=== PATIENT | male | born 1990 | race Caucasian/White ===

== ENCOUNTER 2020-12-15 02:09 | Emergency (ER) | payer SELFPAY ==
--- NOTE | ~2020-12-15 | XR_ITS ---
XR chest 1V portable DATE: 12/15/2020 02:55 INDICATION: Left chest pain TECHNIQUE: Portable AP chest on 12/15/2020 at 0250 hours COMPARISON: None FINDINGS: No pulmonary infiltrate or consolidation, pleural effusion or pulmonary vascular congestion or pneumothorax. Heart size is normal. IMPRESSION: No active cardiopulmonary disease Reviewed, dictated and finalized at location [facility].
--- NOTE | ~2020-12-15 | XR_ITS ---
XR abdomen/kub 1V DATE: 12/15/2020 02:56 INDICATION: Right abdominal pain TECHNIQUE: Portable supine AP view COMPARISON: None FINDINGS: There is a prominent of fecal material in the rectum and colon but no bowel obstruction is evident. The psoas shadows appear intact. Cannot exclude hepatomegaly; otherwise no apparent viscerom egaly. There is abnormal calcification of the abdomen or pelvis. IMPRESSION: Prominent of fecal material throughout the rectum and colon; no apparent bowel obstructio n Cannot exclude hepatomegaly Reviewed, dictated and finalized at [facility]. Reviewed, dictated and finalized at location [facility]. IMPRESSION: Prominent of fecal material throughout the rectum and colon; no mira arent bowel obstruction Cannot exclude hepatomegaly
[2020-12-15 02:10] VITALS: BP 132/97; PULSE 104; RESP 17; TEMP 37.2; O2SAT 100
[2020-12-15 02:18] VITALS: RESP 15
[2020-12-15] MEDS: ONDANSETRON INJ 4 MG/2 ML VIAL IV PUSH (02:25)
--- NOTE | 2020-12-15 02:27 | ECG_ITS ---
Measurements Intervals [place] Rate: 97 P: 62 [place]: 134 QRS: 58 QRSD: 81 T: 49 QT: 341 QTc: 434 Interpretive Statements SINUS RHYTHM BASELINE WANDER- V6 NORMAL ECG Electronically Signed On 12-15-2020 5:52:50 CDT by Leobardo Weathers D.O.
--- NOTE | 2020-12-15 02:29 | PC.NURSE ---
[facility] is on their way to sit with patient.
--- NOTE | 2020-12-15 02:29 | PC.NURSE ---
contacted Gogo almanza. sister [phone]
[2020-12-15 02:43] LABS: Glucose Point of Care 114 mg/dl (65-105)
[2020-12-15 02:55] LABS: Basophils Percent Auto 0.4 % (0.2-1.2); Eosinophils Absolute Auto 0.1 K/mm3 (0-0.3); Hematocrit 41.4 % (42.0-52.0); Hemoglobin 13.7 g/dL (14.0-18.0); Immature Granulocyte Absolute 0.05 K/mm3 (0.00-0.031); Immature Granulocyte Percent A 0.5 % (0-0.5); Lymphocytes Absolute Auto 2.07 K/mm3 (0.9-3.2); Mean Corpuscular HGB Conc 33.1 g/dl (32-36); Mean Corpuscular Hemoglobin 30.2 pg (26-34); Mean Corpuscular Volume 91.4 fl (80-100); Mean Platelet Volume 8.9 fl (7.4-10.4); Monocytes Percent Auto 9.7 % (2.6-8.5); Neutrophils Absolute Auto 6.6 K/mm3 (1.3-6.7); Neutrophils Percent Auto 67.4 % (45.5-73.1); Platelet Count Result 337 k/mm3 (150-375); Red Blood Count 4.53 M/mm3 (4.6-6.20); Red Cell Distribution Width 12.7 % (11.5-14.5); White Blood Count 9.9 K/mm3 (4.5-10.0)
[2020-12-15 03:04] LABS: Prothrombin Time 13.3 Seconds (11.1-14.7)
[2020-12-15 03:05] LABS: Partial Thromboplastin Time 30.5 SECONDS (22.3-36.8)
[2020-12-15 03:06] LABS: Alanine Aminotransferase 108 U/L (4-50); Albumin Level 4.3 g/dL (3.5-5.1); Alkaline Phosphatase 165 U/L (38-126); Anion Gap 7 mmol/L (8-16); Aspartate Amino Transferase 63 U/L (17-59); Bilirubin,Total 0.6 mg/dL (0.2-1.3); Blood Urea Nitrogen 14 mg/dL (9-20); Calcium 9.5 mg/dL (8.4-10.2); Carbon Dioxide 27 mmol/L (22-30); Chloride 105 mmol/L (98-107); Estimated Glomerular Filt Rate > 60; Ethanol < 10 mg/dL (<10); Glucose 109 mg/dL (65-110); Potassium 3.9 mmol/L (3.4-5.0); Sodium 139 mmol/L (137-145)
[2020-12-15 03:07] LABS: Lipase 45 U/L (23-300); Magnesium 1.9 mg/dL (1.6-2.3)
[2020-12-15 03:18] LABS: Troponin I < 0.012 ng/mL (0.000-0.034)
[2020-12-15 03:25] VITALS: BP 125/86; PULSE 100; RESP 14; O2SAT 96
--- NOTE | 2020-12-15 03:32 | ED.OVERDOSE ---
HPI - Overdose General Chief Complaint: Overdose Stated Complaint: chest and abd pain Time Seen by Provider: 12/15/20 02:13 Source: patient, EMS and RN notes reviewed Mode of arrival: EMS Limitations: no limitations History of Present Illness HPI Narrative: This is a 30 year old male with history of substance abuse who presents with EMS for evaluation an overdose. Patient states he swallowed bag containing 6.5 bars of xanax and 15 tabs of fentanyl prior to ER. He states he ingested this bag in order to keep from getting caught with drugs. EMs reports patient had decreased consciousness so PD gave patient 4 mg narcan. Patient is complaining of left chest and abdominal pain with nausea. He denies shortness of breath. He states he uses 2 bars of xanax daily and he uses fentanyl daily. He also admits to using meth earlier. Related Data Allergies Allergy/AdvReac Type Severity Reaction Status Date / Time No Known Allergies Allergy Verified 12/15/20 02:22 Review of Systems Review of Systems: All systems reviewed & are unremarkable except as noted in HPI and below PMFSH Past Medical History Medical History (Updated 12/15/20 @ 08:31 by Carina Parra MD) Polysubstance abuse Seizure Surgical History Surgical History (Updated 12/15/20 @ 03:35 by Carina Parra MD) No pertinent past surgical history Social History Social History Gender identity (if verbalized by the patient): Male Exam Const: General: alert Orientation/consciousness: patient oriented x3 Other: midl distress due to abdominal pain Eyes: Pupils: Equal, round and reactive pupils present EOM: EOMs intact bilaterally Chest: Chest palpation & inspection: normal inspection of the chest Resp: Effort & Inspection: normal respiratory effort and no retractions Auscultation: clear to auscultation bilaterally Cardio: Rate: tachycardic Rhythm: regular rhythm Heart sounds: no murmurs GI: GI Palp: Yes Soft to palpation, No Tenderness to palpation present (GI) and No Guarding due to palpation present (GI) Auscultation: normal bowel sounds Skin: General skin exam: normal color Rashes: no rashes Neuro: General: patient oriented x3, moves all extremities and CN's II-XI intact bilaterally Psych: Mental Status: mental status grossly normal Affect: normal affect Course Reevaluation(s) Reevaluation #1: PAtient is resting in bed comfortably. PAtient states he wants to leave AMA. I discussed risk of rupture of plastic bag with drugs cause acute intoxication, acute respiratory failure, respiratory arrest, . Patient states he understands and his sister is at bedside. Date: 12/15/20 Time: 05:00 Vital Signs Vital signs: Vital Signs Temperature 99.0 F 12/15/20 02:10 Pulse Rate 104 H 12/15/20 02:10 Respiratory Rate 17 12/15/20 02:10 Blood Pressure 132/97 H 12/15/20 02:10 Pulse Oximetry 100 12/15/20 02:10 Temperature 99.0 F 12/15/20 02:10 Pulse Rate 102 H 12/15/20 04:25 Respiratory Rate 17 12/15/20 04:25 Blood Pressure 123/83 12/15/20 04:25 Pulse Oximetry 97 12/15/20 04:25 MDM - Overdose Lab Data Attestation: I reviewed the patient's lab results. Result diagrams: 12/15/20 02:47 12/15/20 02:47 Labs: Lab Results 12/15/20 12/15/20 12/15/20 Range/Units 02:40 02:47 02:47 WBC 9.9 (4.5-10.0) K/mm3 RBC 4.53 L (4.6-6.20) M/mm3 Hgb 13.7 L (14.0-18.0) g/dL Hct 41.4 L (42.0-52.0) % MCV 91.4 (80-100) fl MCH 30.2 (26-34) pg MCHC 33.1 (32-36) g/dl RDW 12.7 (11.5-14.5) % Plt Count 337 (150-375) k/mm3 MPV 8.9 (7.4-10.4) fl Immature Gran % (Auto) 0.5 (0-0.5) % Neut % (Auto) 67.4 (45.5-73.1) % Lymph % (Auto) 21.0 (18.3-44.2) % [place] % (Auto) 9.7 H (2.6-8.5) % Eos % (Auto) 1.0 (0-4.4) % Baso % (Auto) 0.4 (0.2-1.2) % Lymph # (Auto) 2.07 (0.9-3.2) K/mm3 [place] # (Auto) 1.0 H (0.1-0.6) K/m
[2020-12-15 04:25] VITALS: BP 123/83; PULSE 102; RESP 17; O2SAT 97
[2020-12-15 04:28] LABS: Add Urine Microscopic? YES; Appearance Urine Clear (Clear); Bilirubin Urine Negative (Negative); Blood Urine Negative (Negative); Color Urine Yellow (Yellow); Glucose Urine UA Negative (Negative); Ketones Urine Negative (Negative); Leukocyte Esterase Ur Negative LEU/UL (Negative); Mucus Urine Rare /lpf; Nitrate Urine Negative (Negative); Protein Urine Negative (Negative); RBC Urine 0-2 /hpf (0-2); Specific Grav Ur 1.024 (1.001-1.035)
[2020-12-15 04:32] LABS: Barbiturate Screen Urine Negative (Negative); Benzodiazepines Screen Urine Negative (Negative)
[2020-12-15 04:35] LABS: Cannabinoid Screen Urine Negative (Negative); Cocaine Screen Urine Positive (Negative); Methadone Screen Urine Negative (Negative); Opiate Screen Urine Negative (Negative); Phencyclidine Screen Urine Negative (Negative)
[2020-12-15 04:57] LABS: Amphetamine Screen Urine Positive (Negative)
== END 2020-12-15 04:50 | disposition left against medical advice (07) ==
LOC: ANHED 03:26
PROVIDERS: Emergency Provider General Practice
DX: T42.4X1A Poisoning by benzodiazepines, accidental (unintentional), initial encounter (principal); T40.411A Poisoning by fentanyl or fentanyl analogs, accidental (unintentional), initial encounter
CPT/HCPCS: 36415; 71045; 74018; 80053; 80307; 81001; 82948; 83690; 83735; 84484; 85025; 85610; 85730; 93005; 96374; 99284; J2405